=== PATIENT | male | born 1930 | race Caucasian/White ===

== ENCOUNTER 2017-02-03 17:17 | Emergency (ER) | payer MEDICARE, BC ==
[~2017-02-03] VITALS: Ht 172.7 cm; Wt 98.8 kg
[~2017-02-03 17:17] MED LIST: AMIO200T57 PO; APIX5TAB3 PO; ASPI-611 PO; CHOL10008 PO; FLUV40CA6 PO; FURO-150 PO; GLIM4TAB79 PO; LACT10SO PO; LISI10TA4 PO; METF500T4 PO; METO-467 PO; ONDA4TAB12 PO; OXYC10TA86 PO; POTA10TA36 PO; TAMS0.4C32 PO; [UNRECOGNIZED DRUG - CODE] PO
[2017-02-03 18:44] LABS: CLARITY,URINE Clear (Clear); COLOR,URINE Yellow (Yellow); GLUCOSE, URINE Negative (Neg); KETONES,URINE Negative (Neg); LEUKOCYTE ESTERASE ,URINE Negative (Neg); NITRITES, URINE Negative (Neg); OCCULT BLOOD,URINE Negative (Neg); PROTEIN,URINE Negative (Neg)
[2017-02-03 18:45] LABS: UA COLLECTION TYPE CLN CATCH MIDSTREAM
[2017-02-03 19:05] LABS: BASOPHILS % (AUTO) 0.3 % (0-1); EOSINOPHILS # (AUTO) 0.3 X10'3 (0-0.9); EOSINOPHILS % (AUTO) 3.7 % (0-6); HEMATOCRIT 46.1 % (42.0-52.0); HEMOGLOBIN 15.3 g/dl (14.0-17.9); LYMPHOCYTES # (AUTO) 0.9 X10'3 (1.1-4.8); MEAN CORPUSCULAR HEMOGLOBIN 31.1 PG (27.0-31.0); MEAN CORPUSCULAR HGB CONC 33.3 % (33.0-36.5); MEAN CORPUSCULAR VOLUME 93.4 FL (78-98); MEAN PLATELET VOLUME 8.2 FL (7.4-10.4); MONOCYTES # (AUTO) 0.6 X10'3 (0-0.9); MONOCYTES % (AUTO) 7.3 % (2-12); NEUTROPHILS # (AUTO) 5.8 X10'3 (1.8-7.7); NEUTROPHILS % (AUTO) 76.7 % (42-75); PLATELET COUNT 194 X10'3 (140-440); RED BLOOD COUNT 4.94 X10'6 (4.70-6.10); RED CELL DISTRIBUTION WIDTH 13.4 % (11.5-14.5); WHITE BLOOD COUNT 7.6 X10'3 (4.5-11.0)
[2017-02-03 19:15] LABS: PROTHROMBIN TIME 10.2 SECONDS (9.0-12.0)
[2017-02-03 19:21] LABS: ALANINE AMINOTRANSFERASE 28 U/L (12-78); ALKALINE PHOSPHATASE 131 IU/L (46-116); ANION GAP 8 (8-16); ASPARTATE AMINO TRANSFERASE 23 U/L (10-37); BILIRUBIN,TOTAL 1.7 MG/DL (0.1-1.0); BLOOD UREA NITROGEN 28 MG/DL (7-18); BUN/CREATININE RATIO 12.2 (5.4-32.0); CALCIUM 9.4 MG/DL (8.5-10.1); CHLORIDE 99 MMOL/L (99-107); CREATININE 2.29 MG/DL (0.60-1.10); GLUCOSE 226 MG/DL (70-104); POTASSIUM 4.3 MMOL/L (3.5-5.1); SODIUM 142 MMOL/L (135-145); TOTAL CARBON DIOXIDE 35.1 MMOL/L (24-32); TOTAL PROTEIN 8.2 G/DL (6.4-8.2); eGFR 27 ML/MIN
[2017-02-03] MEDS: normal saline 1000ml 1,000 ML IV SCH ×3 (20:02→21:12)
[2017-02-03] MEDS ORDERED: GOLYS PO (21:09)
[2017-02-03] MEDS ORDERED: BISA10SU60 RC (21:09)
[2017-02-03 21:22] VITALS: BP 142/77
== END 2017-02-03 21:23 | disposition home or self-care (01) ==
LOC: ER 17:17
DX: K59.00 Constipation, unspecified (principal); R10.84 Generalized abdominal pain; I25.10 Atherosclerotic heart disease of native coronary artery without angina pectoris; Z90.49 Acquired absence of other specified parts of digestive tract; Z95.0 Presence of cardiac pacemaker; Z95.1 Presence of aortocoronary bypass graft; Z79.84 Long term (current) use of oral hypoglycemic drugs; Z79.82 Long term (current) use of aspirin
CPT/HCPCS: 36415; 74000; 74176; 80053; 81003; 85025; 85610; 99285; J7030

== ENCOUNTER 2017-09-10 10:24 | Inpatient (IN) | payer MEDICARE, BC ==
[~2017-09-10] VITALS: Ht 172.7 cm; Wt 99.1 kg
[~2017-09-10 10:24] MED LIST changes: +AMIO200T40 PO; -AMIO200T57 PO; +BISA10SU60 RC; +GOLYS PO; +METF-436 PO; -METF500T4 PO
[2017-09-10 10:53] LABS: BASOPHILS % (AUTO) 0.1 % (0-1); EOSINOPHILS # (AUTO) 0.1 X10'3 (0-0.9); EOSINOPHILS % (AUTO) 1.6 % (0-6); HEMATOCRIT 43.8 % (42.0-52.0); HEMOGLOBIN 15.1 g/dl (14.0-17.9); LYMPHOCYTES # (AUTO) 0.7 X10'3 (1.1-4.8); LYMPHOCYTES % (AUTO) 9.5 % (21-51); MEAN CORPUSCULAR HEMOGLOBIN 31.5 PG (27.0-31.0); MEAN CORPUSCULAR HGB CONC 34.4 % (33.0-36.5); MEAN CORPUSCULAR VOLUME 91.7 FL (78-98); MEAN PLATELET VOLUME 8.2 FL (7.4-10.4); MONOCYTES # (AUTO) 0.3 X10'3 (0-0.9); NEUTROPHILS # (AUTO) 6.6 X10'3 (1.8-7.7); NEUTROPHILS % (AUTO) 84.8 % (42-75); PLATELET COUNT 145 X10'3 (140-440); RED BLOOD COUNT 4.78 X10'6 (4.70-6.10); RED CELL DISTRIBUTION WIDTH 16.1 % (11.5-14.5); WHITE BLOOD COUNT 7.7 X10'3 (4.5-11.0)
[2017-09-10 11:03] LABS: PARTIAL THROMBOPLASTIN TIME 29 SECONDS (22-32); PROTHROMBIN TIME 10.5 SECONDS (9.0-12.0)
[2017-09-10 11:08] LABS: ALANINE AMINOTRANSFERASE 28 U/L (12-78); ALBUMIN 2.3 G/DL (3.4-5.0); ALBUMIN/GLOBULIN RATIO 0.5 (1.1-1.5); ALKALINE PHOSPHATASE 100 IU/L (46-116); ANION GAP 7 (8-16); ASPARTATE AMINO TRANSFERASE 20 U/L (10-37); BILIRUBIN,TOTAL 1.6 MG/DL (0.1-1.0); BLOOD UREA NITROGEN 31 MG/DL (7-18); BUN/CREATININE RATIO 14.4 (5.4-32.0); CHLORIDE 102 MMOL/L (99-107); CREATININE 2.15 MG/DL (0.60-1.10); GLUCOSE 175 MG/DL (70-104); POTASSIUM 4.1 MMOL/L (3.5-5.1); SODIUM 138 MMOL/L (135-145); TOTAL PROTEIN 7.4 G/DL (6.4-8.2); eGFR 29 ML/MIN
[2017-09-10] MEDS ORDERED: nitroGLYCERIN 0.4mg/hour patch TD ONE (12:10)
[2017-09-10] MEDS ORDERED: aspirin 81mg tab.chew PO ONE (12:10)
[2017-09-10] MEDS ORDERED: magnesium hydroxide 30ml (MOM) UD suspension PO PRN (12:45)
[2017-09-10] MEDS ORDERED: magnesium 4gm in 100ml NS 100 ML IV PRN (12:45)
[2017-09-10] MEDS ORDERED: acetaminophen 325mg tablet PO PRN ×2 (12:45)
[2017-09-10] MEDS ORDERED: potassium Cl 20 mEq SR tablet PO PRN ×2 (12:45)
[2017-09-10] MEDS ORDERED: regadenoson 0.4mg/5ml syringe IV ONE (12:45)
[2017-09-10] MEDS ORDERED: ondansetron/PF 4mg/2ml inj IV PRN (12:45)
[2017-09-10] MEDS ORDERED: HYDROcodone/acetaminophen 10/325mg tab PO PRN (12:45)
[2017-09-10] MEDS ORDERED: metoprolol tartrate 1mg/ml inj IV PRN (12:45)
[2017-09-10] MEDS ORDERED: CAFFEINE CITRATE 60 MG/3 ML injection vial IV PRN (12:45)
[2017-09-10] MEDS ORDERED: potassium Cl 40MEQ/NS 500ml 500 ML IV PRN ×2 (12:45)
[2017-09-10] MEDS ORDERED: morphine 4 MG/ML inj SYRINge IV PRN ×2 (12:45)
[2017-09-10] MEDS ORDERED: magnesium 1gm/100ml D5W IVPB 100 ML IV PRN (12:45)
[2017-09-10] MEDS ORDERED: nitroGLYCERIN 0.4mg SUBLingual tab SL PRN (12:45)
[2017-09-10] MEDS ORDERED: HYDROcodone/acetaminophen 5mg/325mg tablet PO PRN (12:45)
[2017-09-10] MEDS ORDERED: mag hydrox/Alum hydrox/simeth 30ml oral suspension PO PRN (12:45)
[2017-09-10] MEDS ORDERED: magnesium Cl slow-release 64mg tablet PO PRN (12:45)
[2017-09-10] MEDS ORDERED: DIPH25CA83 PO (12:56)
[2017-09-10] MEDS ORDERED: OMEG1CAP PO (12:56)
[2017-09-10] MEDS ORDERED: regadenoson 0.4mg/5ml syringe IV PRN (13:05)
[2017-09-10] MEDS: normal saline 1000ml 1,000 ML IV SCH (13:22)
[2017-09-10 14:00] VITALS: BP 145/80
[2017-09-10 15:00] VITALS: BP 156/70
[2017-09-10] MEDS ORDERED: glucagon, human recombinant 1mg kit SUBCUT PRN (17:15)
[2017-09-10] MEDS ORDERED: dextrose ORAL solution 15 GM/59 ML bottle PO PRN ×2 (17:15)
[2017-09-10] MEDS ORDERED: insulin Lispro (HumaLOG) vial - multi-dose SQ SCH (17:15)
[2017-09-10] MEDS ORDERED: dextrose 50%-water 50ml dispensing syringe IV PRN ×2 (17:15)
[2017-09-10 18:00] VITALS: BP 125/76
[2017-09-10] MEDS: heparin, porcine 5000 units/ml vial SQ SCH (20:00)
[2017-09-10] MEDS: apixaban 5mg tablet PO SCH (20:20)
[2017-09-10] MEDS: metoprolol tartrate 50mg tablet PO SCH (20:21)
[2017-09-10] MEDS: insulin glargine (Lantus) pen - multi-dose SQ SCH (20:52)
[2017-09-10] MEDS ORDERED: temazepam 15mg capsule PO PRN (21:00)
[2017-09-10 22:00] VITALS: BP 105/60
[2017-09-11] VITALS (13 sets, daily range): BP systolic 108–149; BP diastolic 57–84
[2017-09-11] MEDS: normal saline 1000ml 1,000 ML IV SCH (01:02)
[2017-09-11 05:58] LABS: BASOPHILS % (AUTO) 0.4 % (0-1); EOSINOPHILS # (AUTO) 0.2 X10'3 (0-0.9); EOSINOPHILS % (AUTO) 2.5 % (0-6); HEMATOCRIT 39.3 % (42.0-52.0); HEMOGLOBIN 13.3 g/dl (14.0-17.9); LYMPHOCYTES # (AUTO) 0.9 X10'3 (1.1-4.8); LYMPHOCYTES % (AUTO) 11.2 % (21-51); MEAN CORPUSCULAR HEMOGLOBIN 31.3 PG (27.0-31.0); MEAN CORPUSCULAR HGB CONC 33.9 % (33.0-36.5); MEAN CORPUSCULAR VOLUME 92.1 FL (78-98); MEAN PLATELET VOLUME 8.6 FL (7.4-10.4); MONOCYTES # (AUTO) 0.5 X10'3 (0-0.9); MONOCYTES % (AUTO) 6.5 % (2-12); NEUTROPHILS # (AUTO) 6.4 X10'3 (1.8-7.7); NEUTROPHILS % (AUTO) 79.4 % (42-75); PLATELET COUNT 130 X10'3 (140-440); RED BLOOD COUNT 4.27 X10'6 (4.70-6.10); RED CELL DISTRIBUTION WIDTH 16.5 % (11.5-14.5)
[2017-09-11] MEDS: heparin, porcine 5000 units/ml vial SQ SCH ×2 (06:21→20:00)
[2017-09-11 06:25] LABS: ALANINE AMINOTRANSFERASE 22 U/L (12-78); ALKALINE PHOSPHATASE 62 IU/L (46-116); ANION GAP 8 (8-16); ASPARTATE AMINO TRANSFERASE 15 U/L (10-37); BILIRUBIN,TOTAL 1.4 MG/DL (0.1-1.0); BLOOD UREA NITROGEN 23 MG/DL (7-18); BUN/CREATININE RATIO 13.5 (5.4-32.0); CALCIUM 8.2 MG/DL (8.5-10.1); CHLORIDE 106 MMOL/L (99-107); GLUCOSE 58 MG/DL (70-104); MAGNESIUM 1.6 MG/DL (1.5-2.4); SODIUM 140 MMOL/L (135-145); TOTAL CARBON DIOXIDE 26.3 MMOL/L (24-32); eGFR 38 ML/MIN
[2017-09-11 06:39] LABS: HEMOGLOBIN A1C 6.5 % (4.5-6.2)
[2017-09-11] MEDS: pantoprazole 40mg Tablet.DR PO SCH (07:19)
[2017-09-11] MEDS: atorvastatin 10mg tablet PO SCH (07:19)
[2017-09-11] MEDS: apixaban 5mg tablet PO SCH (07:19)
[2017-09-11] MEDS: tamsulosin 0.4mg capsule PO SCH (07:19)
[2017-09-11] MEDS: amiodarone 200mg tablet PO SCH (07:20)
[2017-09-11] MEDS: K and/or MAG REPLACEMENT MC SCH (08:00)
[2017-09-11] MEDS: lisinopril 10 MG tablet PO SCH (08:00)
[2017-09-11] MEDS: metoprolol tartrate 50mg tablet PO SCH ×2 (09:44→20:47)
[2017-09-11] MEDS: sodium bicarbonate (8.4%) inj. 150 MEQ in sodium chloride 0.45% 1,000 ML IV SCH ×2 (10:05→22:03)
[2017-09-11] MEDS: acetylcysteine 200 MG/ml 4ml vial PO SCH ×2 (11:04→20:44)
[2017-09-11] MEDS ORDERED: iohexol 350 MG/ML 50ML vial IV ONE (15:34)
[2017-09-11] MEDS ORDERED: LIDOcaine 1% 30ml preserv. free vial ONE (15:34)
[2017-09-11] MEDS ORDERED: nitroGLYCERIN-Tridil 50MG/D5W 250 ML IV ONE (15:34)
[2017-09-11] MEDS ORDERED: iohexol 350MG/ML 100ml bottle IV ONE (15:35)
[2017-09-11] MEDS ORDERED: heparin 1,000 UNITS/NS 500ml 500 ML ONE ×3 (15:35→18:14)
[2017-09-11] MEDS ORDERED: heparin 1,000unit/ml 10ml vial 10 ML ONE (15:35)
[2017-09-11] MEDS ORDERED: fentaNYL/PF 50MCG/1 ML 2ML syringe ONE (18:08)
[2017-09-11] MEDS ORDERED: midazolam 2 mg/2 ml injection ONE (18:08)
[2017-09-11] MEDS: insulin glargine (Lantus) pen - multi-dose SQ SCH (22:03)
[2017-09-12 03:00] VITALS: BP_SYST 108; BP_SYST 151; BP_DIAS 54; BP_DIAS 78
[2017-09-12 06:00] VITALS: BP 133/80
[2017-09-12 06:21] LABS: BASOPHILS % (AUTO) 0.5 % (0-1); EOSINOPHILS # (AUTO) 0.2 X10'3 (0-0.9); EOSINOPHILS % (AUTO) 2.5 % (0-6); HEMATOCRIT 44.5 % (42.0-52.0); HEMOGLOBIN 15.1 g/dl (14.0-17.9); LYMPHOCYTES # (AUTO) 1.2 X10'3 (1.1-4.8); LYMPHOCYTES % (AUTO) 14.2 % (21-51); MEAN CORPUSCULAR HEMOGLOBIN 31.6 PG (27.0-31.0); MEAN CORPUSCULAR VOLUME 92.9 FL (78-98); MEAN PLATELET VOLUME 8.9 FL (7.4-10.4); MONOCYTES # (AUTO) 0.6 X10'3 (0-0.9); MONOCYTES % (AUTO) 6.8 % (2-12); NEUTROPHILS # (AUTO) 6.2 X10'3 (1.8-7.7); PLATELET COUNT 134 X10'3 (140-440); RED BLOOD COUNT 4.79 X10'6 (4.70-6.10); RED CELL DISTRIBUTION WIDTH 16.4 % (11.5-14.5); WHITE BLOOD COUNT 8.2 X10'3 (4.5-11.0)
[2017-09-12 06:39] LABS: ALANINE AMINOTRANSFERASE 27 U/L (12-78); ALBUMIN 3.4 G/DL (3.4-5.0); ALBUMIN/GLOBULIN RATIO 0.9 (1.1-1.5); ALKALINE PHOSPHATASE 73 IU/L (46-116); ANION GAP 5 (8-16); ASPARTATE AMINO TRANSFERASE 22 U/L (10-37); BILIRUBIN,TOTAL 1.4 MG/DL (0.1-1.0); BLOOD UREA NITROGEN 27 MG/DL (7-18); BUN/CREATININE RATIO 15.1 (5.4-32.0); CALCIUM 8.7 MG/DL (8.5-10.1); CHLORIDE 103 MMOL/L (99-107); CREATININE 1.79 MG/DL (0.60-1.10); GLUCOSE 120 MG/DL (70-104); MAGNESIUM 1.7 MG/DL (1.5-2.4); POTASSIUM 4.2 MMOL/L (3.5-5.1); SODIUM 140 MMOL/L (135-145); TOTAL CARBON DIOXIDE 31.6 MMOL/L (24-32); eGFR 36 ML/MIN
[2017-09-12] MEDS: acetylcysteine 200 MG/ml 4ml vial PO SCH (07:40)
[2017-09-12] MEDS: heparin, porcine 5000 units/ml vial SQ SCH (07:41)
[2017-09-12] MEDS: metoprolol tartrate 50mg tablet PO SCH (07:42)
[2017-09-12] MEDS: atorvastatin 10mg tablet PO SCH (07:42)
[2017-09-12] MEDS: pantoprazole 40mg Tablet.DR PO SCH (07:42)
[2017-09-12] MEDS: amiodarone 200mg tablet PO SCH (07:43)
[2017-09-12] MEDS: lisinopril 10 MG tablet PO SCH (07:43)
[2017-09-12] MEDS: tamsulosin 0.4mg capsule PO SCH (07:43)
[2017-09-12] MEDS: sodium bicarbonate (8.4%) inj. 150 MEQ in sodium chloride 0.45% 1,000 ML IV SCH (07:44)
[2017-09-12] MEDS: K and/or MAG REPLACEMENT MC SCH (08:00)
[2017-09-12] MEDS ORDERED: isosorbide mononitrate 30mg tab.SR.24H PO SCH (08:00)
[2017-09-12 11:00] VITALS: BP 91/65
[2017-09-12] MEDS ORDERED: NITR0.4T51 SL (12:21)
[2017-09-12] MEDS ORDERED: ISOS30TA6 PO (12:21)
[2017-09-12] MEDS ORDERED: aspirin 81mg tab.chew PO ONE (12:40)
[2017-09-12] MEDS ORDERED: nitroGLYCERIN 0.4mg SUBLingual tab SL PRN (12:40)
[2017-09-12] MEDS ORDERED: nitroGLYCERIN-Tridil 50MG/D5W 250 ML IV SCH (12:40)
[2017-09-12] MEDS ORDERED: acetaminophen 325mg tablet PO PRN (12:45)
[2017-09-12] MEDS ORDERED: magnesium hydroxide 30ml (MOM) UD suspension PO PRN (12:45)
[2017-09-12] MEDS ORDERED: morphine 10mg/ml inj. IV PRN (12:45)
[2017-09-12] MEDS ORDERED: OXAZEpam 15mg capsule PO PRN (12:45)
[2017-09-12] MEDS ORDERED: morphine 4 MG/ML inj SYRINge IV PRN (12:45)
[2017-09-12] MEDS ORDERED: cyclobenzaprine 10mg tablet PO PRN (12:45)
[2017-09-12] MEDS ORDERED: HYDROcodone/acetaminophen 10/325mg tab PO PRN ×2 (12:45)
[2017-09-12] MEDS ORDERED: proCHLORperazine 10 MG/2 ml inj IV PRN (12:45)
[2017-09-12] MEDS ORDERED: docusate sod 100mg capsule PO SCH (20:00)
[2017-09-13] MEDS ORDERED: apixaban 5mg tablet PO SCH (08:00)
[2017-09-13] MEDS ORDERED: lisinopril 2.5mg tablet PO SCH (08:00)
[2017-09-13] MEDS ORDERED: aspirin 81mg tab.chew PO SCH (08:30)
== END 2017-09-12 13:00 | disposition home or self-care (01) | DRG 287 ==
LOC: ER 10:24 → ED HOLD 12:45 → PCU 3S 14:05
PROVIDERS: ADMIT Internal Medicine; ATTEND Family Medicine
PROC: 4A023N7 Measurement of Cardiac Sampling and Pressure, Left Heart, Percutaneous Approach (ICD-10-PCS; principal; 2017-09-11)
PROC: B2111ZZ Fluoroscopy of Multiple Coronary Arteries using Low Osmolar Contrast (ICD-10-PCS; 2017-09-11)
PROC: B2131ZZ Fluoroscopy of Multiple Coronary Artery Bypass Grafts using Low Osmolar Contrast (ICD-10-PCS; 2017-09-11)
PROC: B2151ZZ Fluoroscopy of Left Heart using Low Osmolar Contrast (ICD-10-PCS; 2017-09-11)
DX: I25.110 Atherosclerotic heart disease of native coronary artery with unstable angina pectoris (principal); N18.3 Chronic kidney disease, stage 3 (moderate); E11.22 Type 2 diabetes mellitus with diabetic chronic kidney disease; I12.9 Hypertensive chronic kidney disease with stage 1 through stage 4 chronic kidney disease, or unspecified chronic kidney disease; E78.5 Hyperlipidemia, unspecified; M19.90 Unspecified osteoarthritis, unspecified site; E66.9 Obesity, unspecified; I07.1 Rheumatic tricuspid insufficiency; I48.0 Paroxysmal atrial fibrillation; I49.5 Sick sinus syndrome; E78.00 Pure hypercholesterolemia, unspecified; Z95.1 Presence of aortocoronary bypass graft; Z95.0 Presence of cardiac pacemaker; Z79.82 Long term (current) use of aspirin; Z79.01 Long term (current) use of anticoagulants; Z79.84 Long term (current) use of oral hypoglycemic drugs; Z79.899 Other long term (current) drug therapy; Z88.8 Allergy status to other drugs, medicaments and biological substances; Z87.891 Personal history of nicotine dependence; Z68.33 Body mass index [BMI] 33.0-33.9, adult
CPT/HCPCS: 36415; 71045; 80053; 82948; 83036; 83605; 83735; 83880; 84484; 85025; 85610; 85730; 87040; 87070; 93005; 93306; 93459; 99152; 99153; A4620; A6257; A6258; C1760; C1769; C1894; J1644; J1815; J2250; J3010; J3490; J7030; Q9967

== ENCOUNTER 2020-02-08 13:15 | Emergency (ER) | payer MEDICARE, BC ==
[~2020-02-08] VITALS: Ht 172.7 cm; Wt 99.5 kg
[~2020-02-08 13:15] MED LIST changes: -AMIO200T40 PO; +AMIO200T61 PO; -ASPI-611 PO; -BISA10SU60 RC; -CHOL10008 PO; +DIPH25CA83 PO; +GLIM4TAB7 PO; -GLIM4TAB79 PO; -GOLYS PO; +ISOS30TA6 PO; -LACT10SO PO; +NITR0.4T51 SL; +OMEG1CAP PO; -ONDA4TAB12 PO; -OXYC10TA86 PO; -[UNRECOGNIZED DRUG - CODE] PO
== END 2020-02-08 14:10 | disposition home or self-care (01) ==
LOC: ER 13:16
DX: J02.9 Acute pharyngitis, unspecified (principal); R11.2 Nausea with vomiting, unspecified; Z20.828 Contact with and (suspected) exposure to other viral communicable diseases; I25.10 Atherosclerotic heart disease of native coronary artery without angina pectoris; E78.00 Pure hypercholesterolemia, unspecified; E11.9 Type 2 diabetes mellitus without complications; Z90.49 Acquired absence of other specified parts of digestive tract; Z95.1 Presence of aortocoronary bypass graft; Z95.0 Presence of cardiac pacemaker; Z79.01 Long term (current) use of anticoagulants; Z79.84 Long term (current) use of oral hypoglycemic drugs; Z79.899 Other long term (current) drug therapy
CPT/HCPCS: 36415; 87635; 99283

== ENCOUNTER 2020-05-20 12:37 | Emergency (ER) | payer MEDICARE, BC ==
[~2020-05-20] VITALS: Ht 172.7 cm; Wt 95.0 kg
[~2020-05-20 12:37] MED LIST changes: -ISOS30TA6 PO; +ISOS30TA84 PO; +LISI10TA27 PO; -LISI10TA4 PO
[2020-05-20 13:27] LABS: BASOPHILS # (AUTO) 0.1 X10'3 (0-0.2); BASOPHILS % (AUTO) 0.9 % (0-1); EOSINOPHILS # (AUTO) 0.1 X10'3 (0-0.9); EOSINOPHILS % (AUTO) 1.6 % (0-6); HEMATOCRIT 45.6 % (42.0-52.0); HEMOGLOBIN 15.1 g/dl (14.0-17.9); LYMPHOCYTES # (AUTO) 0.9 X10'3 (1.1-4.8); LYMPHOCYTES % (AUTO) 12.1 % (21-51); MEAN CORPUSCULAR HEMOGLOBIN 31.1 PG (27.0-31.0); MEAN CORPUSCULAR VOLUME 94.1 FL (78-98); MEAN PLATELET VOLUME 8.6 FL (7.4-10.4); MONOCYTES # (AUTO) 0.5 X10'3 (0-0.9); MONOCYTES % (AUTO) 6.3 % (2-12); NEUTROPHILS % (AUTO) 79.1 % (42-75); PLATELET COUNT 168 X10'3 (140-440); RED BLOOD COUNT 4.85 X10'6 (4.70-6.10); RED CELL DISTRIBUTION WIDTH 14.3 % (11.5-14.5); WHITE BLOOD COUNT 7.6 X10'3 (4.5-11.0)
[2020-05-20 13:39] LABS: ALANINE AMINOTRANSFERASE 26 U/L (12-78); ALBUMIN 3.7 G/DL (3.4-5.0); ALBUMIN/GLOBULIN RATIO 1.1 (1.1-1.5); ALKALINE PHOSPHATASE 104 IU/L (46-116); ANION GAP 5 (8-16); ASPARTATE AMINO TRANSFERASE 21 U/L (10-37); BLOOD UREA NITROGEN 27 MG/DL (7-18); BUN/CREATININE RATIO 13.1 (5.4-32.0); CALCIUM 8.8 MG/DL (8.5-10.1); CHLORIDE 106 MMOL/L (99-107); CREATININE 2.06 MG/DL (0.60-1.10); GLUCOSE 192 MG/DL (70-104); POTASSIUM 4.7 MMOL/L (3.5-5.1); SODIUM 142 MMOL/L (135-145); TOTAL CARBON DIOXIDE 30.6 MMOL/L (24-32); TOTAL PROTEIN 7.2 G/DL (6.4-8.2); eGFR 31 ML/MIN
[2020-05-20 18:07] VITALS: BP 135/78
== END 2020-05-20 18:22 | disposition home or self-care (01) ==
LOC: ER 12:38
DX: R42 Dizziness and giddiness (principal); R07.89 Other chest pain; I25.10 Atherosclerotic heart disease of native coronary artery without angina pectoris; E78.00 Pure hypercholesterolemia, unspecified; E11.9 Type 2 diabetes mellitus without complications; Z90.49 Acquired absence of other specified parts of digestive tract; Z95.0 Presence of cardiac pacemaker; Z98.890 Other specified postprocedural states; Z79.899 Other long term (current) drug therapy
CPT/HCPCS: 36415; 71045; 80053; 83880; 84484; 85025; 93005; 99285

== ENCOUNTER 2020-10-04 06:02 | Day surgery (SDC) | payer MEDICARE, BC ==
[2020-10-03 11:31] LABS: BASOPHILS % (AUTO) 0.6 % (0-1); EOSINOPHILS # (AUTO) 0.2 X10'3 (0-0.9); EOSINOPHILS % (AUTO) 2.2 % (0-6); HEMATOCRIT 45.7 % (42.0-52.0); HEMOGLOBIN 15.5 g/dl (14.0-17.9); LYMPHOCYTES % (AUTO) 13.9 % (21-51); MEAN CORPUSCULAR HEMOGLOBIN 31.7 PG (27.0-31.0); MEAN CORPUSCULAR HGB CONC 33.9 g/dL (33.0-36.5); MEAN CORPUSCULAR VOLUME 93.4 FL (78-98); MEAN PLATELET VOLUME 8.3 FL (7.4-10.4); MONOCYTES # (AUTO) 0.6 X10'3 (0-0.9); MONOCYTES % (AUTO) 8.2 % (2-12); NEUTROPHILS # (AUTO) 5.5 X10'3 (1.8-7.7); NEUTROPHILS % (AUTO) 75.1 % (42-75); PLATELET COUNT 170 X10'3 (140-440); RED BLOOD COUNT 4.89 X10'6 (4.70-6.10); RED CELL DISTRIBUTION WIDTH 14.2 % (11.5-14.5); WHITE BLOOD COUNT 7.3 X10'3 (4.5-11.0)
[2020-10-03 11:41] LABS: ANION GAP 6 (8-16); BLOOD UREA NITROGEN 33 MG/DL (7-18); BUN/CREATININE RATIO 15.4 (5.4-32.0); CALCIUM 8.4 MG/DL (8.5-10.1); CHLORIDE 105 MMOL/L (99-107); CREATININE 2.14 MG/DL (0.60-1.10); GLUCOSE 171 MG/DL (70-104); POTASSIUM 4.2 MMOL/L (3.5-5.1); SODIUM 143 MMOL/L (135-145); TOTAL CARBON DIOXIDE 31.7 MMOL/L (24-32); eGFR 29 ML/MIN
[2020-10-03 11:43] LABS: PARTIAL THROMBOPLASTIN TIME 27 SECONDS (22-32)
[~2020-10-04] VITALS: Ht 172.7 cm; Wt 96.3 kg
[2020-10-04] VITALS (12 sets, daily range): BP systolic 93–136; BP diastolic 49–73
[~2020-10-04 06:02] MED LIST changes: -OMEG1CAP PO; +OMEG1CAP61 PO
[2020-10-04] MEDS ORDERED: cefazolin/dext.iso 2gm/100ml 100 ML IV ONE (06:20)
[2020-10-04] MEDS ORDERED: ATOR80TA PO (06:42)
[2020-10-04] MEDS ORDERED: ZINC50TA67 PO (06:42)
[2020-10-04] MEDS ORDERED: [UNRECOGNIZED DRUG - OTHER] PO (06:42)
[2020-10-04] MEDS ORDERED: RIVA20TA PO (06:42)
[2020-10-04] MEDS ORDERED: FURO40TA4 PO (06:42)
[2020-10-04] MEDS ORDERED: Lisinopril PO (06:42)
[2020-10-04] MEDS ORDERED: LIDOcaine 1% W/epiNEPHrine 1:100,000 20ml vial ONE ×2 (07:29→08:29)
[2020-10-04] MEDS ORDERED: fentaNYL/PF 50MCG/1 ML 2ML syringe ONE (07:29)
[2020-10-04] MEDS ORDERED: ceFAZolin 1000mg inj ONE (07:29)
[2020-10-04] MEDS ORDERED: midazolam 1 mg/ML 2ml injection ONE ×2 (07:29→08:30)
[2020-10-04] MEDS ORDERED: diphenhydrAMINE 50 mg/ml inj ONE (08:25)
[2020-10-04] MEDS ORDERED: normal saline 1000ml 1,000 ML IV SCH (09:45)
[2020-10-04] MEDS ORDERED: vancomycin/NS 1 GM ADD-VANTAGE 250 ML IV ONE (10:00)
[2020-10-04] MEDS ORDERED: acetaminophen 325mg tablet PO PRN (11:20)
== END 2020-10-04 13:58 | disposition home or self-care (01) ==
LOC: SSTAY O 06:02
PROVIDERS: ATTEND Internal Medicine Cardiovascular Disease
DX: Z45.010 Encounter for checking and testing of cardiac pacemaker pulse generator [battery] (principal); E11.9 Type 2 diabetes mellitus without complications; I25.10 Atherosclerotic heart disease of native coronary artery without angina pectoris; I10 Essential (primary) hypertension; G47.33 Obstructive sleep apnea (adult) (pediatric); I48.0 Paroxysmal atrial fibrillation; M19.90 Unspecified osteoarthritis, unspecified site; E78.49 Other hyperlipidemia; I35.0 Nonrheumatic aortic (valve) stenosis; I27.29 Other secondary pulmonary hypertension; E66.3 Overweight; Z68.32 Body mass index [BMI] 32.0-32.9, adult; Z79.01 Long term (current) use of anticoagulants; Z79.899 Other long term (current) drug therapy; Z95.1 Presence of aortocoronary bypass graft; Z98.890 Other specified postprocedural states; Z79.84 Long term (current) use of oral hypoglycemic drugs; Z83.3 Family history of diabetes mellitus; Z82.49 Family history of ischemic heart disease and other diseases of the circulatory system
CPT/HCPCS: 33228; 36415; 80048; 82948; 85025; 85610; 85730; 93005; 99152; 99153; C1785; J0690; J1200; J2250; J3010; J3370; J7030; A4620